=== PATIENT | female | born 1980 | race African-American/Black ===

== ENCOUNTER 2023-12-27 19:40 | Outpatient (REF) | payer SELFPAY | END 2023-12-27 19:41 | disposition home or self-care (01) | LOC: HO.LNP 19:40 | PROVIDERS: Visit Provider Internal Medicine | DX: N30.00 Acute cystitis without hematuria (principal); B96.20 Unspecified Escherichia coli [E. coli] as the cause of diseases classified elsewhere | CPT/HCPCS: 87086; 87088; 87186 ==

== ENCOUNTER 2024-01-09 10:57 | Outpatient (REF) | payer SELFPAY ==
[2024-01-09 14:33] LABS: Basophils Absolute Auto 0.1 X10*3/uL (0.0-0.2); Basophils Percent Auto 0.6 % (0-2); Eosinophils Absolute Auto 0.1 X10*3/uL (0.0-0.4); Eosinophils Percent Auto 1.7 % (0-4); Hematocrit 33.2 % (37.0-47.0); Hemoglobin 9.7 g/dl (12.0-16.0); Imm Gran Abs Auto 0.01 X10*3/uL (0.00-0.03); Imm Gran Pct Auto 0.1 % (0.0-0.4); Lymphocytes Absolute Auto 2.1 X10*3/uL (1.2-4.9); Lymphocytes Percent Auto 27.2 % (20-40); MANUAL DIFF FLAG SCAN; Mean Corpuscular HGB Conc 29.2 g/dl (31.0-35.0); Mean Corpuscular Hemoglobin 23.8 pg (27.0-33.0); Mean Corpuscular Volume 81.4 fL (80.0-98.0); Monocytes Absolute Auto 0.5 X10*3/uL (0.1-1.2); Monocytes Percent Auto 6.5 % (2-11); Neutrophils Percent Auto 63.9 % (45-73); PLT CLUMP 1; Red Blood Count 4.08 X10*6/uL (4.20-5.50); Red Cell Distribution Width 15.7 % (11.0-16.0); SCAN SMEAR FLAG 1
[2024-01-09 15:05] LABS: White Blood Count 7.9 X10*3/uL (4.8-10.8)
[2024-01-09 15:06] LABS: Platelet Count 215 X10*3/uL (160-400)
[2024-01-09 15:07] LABS: SLIDE REVIEW VERIFIED
[2024-01-09 15:44] LABS: Alanine Aminotransferase 15 U/L (0-31); Albumin Level 4.3 g/dL (3.5-5.0); Alkaline Phosphatase 67 U/L (39-117); Anion Gap 13 (12-20); Aspartate Amino Transferase 25 U/L (5-31); Bilirubin Total 0.8 mg/dL (0.0-1.0); Blood Urea Nitrogen 8 mg/dL (9-16); Carbon Dioxide 24 mmol/L (22-29); Chloride 106 mmol/L (96-108); Cholesterol 189 mg/dL (<200); Estimated Glomerular Filt Rate > 60; Glucose Random 92 mg/dL (60-115); HCG Quantitative < 2 mIU/mL; HDL Cholesterol 38 mg/dL (>40); LDL Cholesterol Calculated 128 mg/dL (<100); Potassium 3.8 mmol/L (3.3-5.1); Sodium 139 mmol/L (135-145); TSH reflex Free T4 2.66 uIU/mL (0.32-4.0); Total Protein 7.8 g/dL (6.5-8.0); Triglycerides 117 mg/dL (<150)
[2024-01-09 19:32] LABS: Reflex LDLD? No
[2024-01-10 05:39] LABS: HBS Num1 2.19 mIU/mL (0-7.99); HBc Num1 0.05 S/CO (0.00-0.79); HBsAGNum1 0.48 S/CO (0.00-0.99); Hepatitis A Antibody IgM 0.16 Index (0-0.79); Hepatitis B Core Antibody Nonreactive (Nonreactive); Hepatitis B Surface Antigen Negative (Negative); ~HepC Num1 0.13 S/CO (0.00-0.79); ~Hepatitis A Antibody IgM Nonreactive (Nonreactive); ~Hepatitis B Surface Antibody NONREACTIVE (Nonreactive); ~Hepatitis C Antibody Nonreactive (Nonreactive)
== END 2024-01-09 10:58 | disposition home or self-care (01) ==
LOC: HO.HHCL 10:57
PROVIDERS: Visit Provider Internal Medicine
DX: R10.2 Pelvic and perineal pain (principal); I10 Essential (primary) hypertension; N30.00 Acute cystitis without hematuria
CPT/HCPCS: 36415; 80053; 80061; 84443; 84702; 85025; 86704; 86706; 86709; 86803; 87340

== ENCOUNTER 2024-02-19 13:21 | Outpatient (REF) | payer MEDICAID, SELFPAY ==
[2024-02-19 16:21] LABS: Immature Retic Fraction 24.7 % (3.0-15.9); Retic HGB Equivalent 26.1 pg (30.0-35.0); Reticulocyte Percent 2.4 % (0.5-1.8); Reticulocytes Absolute 0.096 X10*6/uL (0.026-0.095)
[2024-02-19 18:32] LABS: Ferritin 7 ng/mL (10-250)
[2024-02-19 18:45] LABS: Folate 13.7 ng/mL (> or = 4.0); Vitamin B12 400 pg/mL (200-900)
[2024-02-19 19:04] LABS: HCG Quantitative 36811 mIU/mL
[2024-02-21 01:38] LABS: Follicle Stimulating Hormone <0.7 mIU/mL; Prolactin Undiluted 23.3 ng/mL
[2024-02-22 14:24] LABS: Hematocrit 31.8 % (35.0-45.0); Hemoglobin 9.5 g/dL (11.7-15.5); MCH 24.4 pg (27.0-33.0); MCV 81.7 fL (80.0-100.0); RBC 3.89 Million/uL (3.80-5.10); RDW 15.2 % (11.0-15.0)
== END 2024-02-19 13:22 | disposition home or self-care (01) ==
LOC: HO.HHCL 13:21
PROVIDERS: Visit Provider Internal Medicine
DX: D64.9 Anemia, unspecified (principal); N91.4 Secondary oligomenorrhea
CPT/HCPCS: 82607; 82728; 82746; 83001; 83020; 84146; 84702; 85014; 85018; 85041; 85045

== ENCOUNTER 2024-04-18 13:29 | Outpatient (REF) | payer MEDICAID, SELFPAY ==
--- OUTSIDE RECORDS SUMMARY | 2024-04-18 17:05 | XMS_ITS | Encounter Summary ---
Author Organization [employer] Address [address] [facility] [address] [place] [address] Care Team Providers Care Tugboat Captain Name Role Phone Ellie Frost MD Primary Care Provider + Reason for Visit * Reason Comments Care Coordination C3KO/TAVO Ramirez#2- SDOH Outreach-LVM Encounter Details Date Type Department Care Team (Latest Contact Info) Description 03/20/2024 Patient Outreach [facility] [address] [place] [address] Ellie Frost MD [address] [place] [address] Care Coordination (ARELY/TAVO Song#2- SDOH Outreach-LVM) Social History Tobacco Use Types Packs/Day Years Used Date Smoking Tobacco: Never Smokeless Tobacco: Never Alcohol Use Standard Drinks/Week Comments Never 0 (1 standard drink = 0.6 oz pur e alcohol) Housing Stability Answer Date Recorded What is your housing situation today? I do not have housing (Staying with others, in a hotel, in a long term, living outside on the street, on a beach, in a car, or in a park 02/16/[address] you li ve. Do you have problems with any of the following? I am not sure 02/16/2024 Food Insecurity Answer Date Recorded Within the past 12 months, y ou worried that your food would run out before you got money to buy more: Often true 02/16/2024 Within the past 12 months,th e food you bought just didn't last and you didn't have enough money to get more: Often true 11/2024 Transportation Answer Date Recorded In the past 12 months, has l ack of transportation kept you from medical appts, meetings, work or from getting things needed for daily living? I am not sure 02/16/2024 Utilities Answer Date Recorded In the past 12 months, has t he electric, gas, oil or water company threatened to shut off services in your home? I am not sure 02/16/2024 Depression Answer Date Recorded Patient Health Questionnaire-2 Score 0 02/16/2024 Internet Access Answer Date Recorded Internet Access Q1 I am not sure 02/16/2024 Internet Access Q2 Not on file 02/16/2024 Comments No Sex and Gender Information Value Date Recorded Sex Assigned at Female 09/18/2023 10:59 AM EDT Legal Sex Female 11:03 AM EDT Gender Identity Female 09/18/2023 10:59 AM EDT Sexual Orientation Straight 12/27/2023 5: 33 PM EST documented as of this encounter Progress Notes * Esther Nascimento - 03/20/2024 1:57 PM EST CHW Esther Nascimento placed outbound call to patient in regards to offer CHW program services using [employer]. VM was left calling from [facility] CM Department with CHW'sname, department and direct contact number requesting call back. Will re-attempt to contact within 5 days. and address not confirmed. documented in this encounter Plan of Treatment Upcoming Encounters Date Type Department Care Team (Late st Contact Info) Description 06/20/2024 9:00 AM EDT Office Visit [facility] [address] [place] [address] Ellie Frost MD [address] [place], [place] [phone] documented as of this encounter Visit Diagnoses Not on filedocumented in this encounter Care Teams Tugboat Captain Relationship Specialty Start Date End Date Ellie Frost MD [address] [place], [place] [phone] PCP - General Internal Medicine 01/10/24 documented as of this encounter
--- OUTSIDE RECORDS SUMMARY | 2024-04-18 17:05 | XMS_ITS | Encounter Summary ---
Author Organization [employer] Address [address] [facility] [address]t [place] [address] Care Team Providers Care Executive Pastry Chef Name Role Phone Ellie Frost MD Primary Care Provider + Reason for Visit * Reason Comments Care Coordination C3KO/TAVO Ramirez#2- SDOH assistance-LVM Encounter Details Date Type Department Care Team (Latest Contact Info) Description 04/10/2024 Patient Outreach [facility] [address] [place] [address] Ellie Frost MD [address] [place] [address] Care Coordination (ARELY/TAVO Song#2- SDOH assistance-LVM) Social History Tobacco Use Types Packs/Day Years [...] encounter Progress Notes * Esther Nascimento - 04/10/2024 1:03 PM EST CHW Esther Nascimento placed outbound call to patient in regards to offer CHW program services for assistance with transportation for upcoming appt on 04/18/2024 @12PM at [facility]. [facility] [place] Creole scrap hooker Yennifer FRIAS calling from [facility] CM Department with CHW's name, department and direct contact number requesting call back. Will re-attempt to contact within 5 days. and address not confirmed. documented in this encounter Plan of Treatment Upcoming Encounters Date Type Department Care Team (Late st Contact Info) Description 06/20/2024 9:00 AM EDT Office Visit [facility] [address] [place] [address] Ellie Frost MD [address] [place] [address] documented as of this encounter Visit Diagnoses Not on filedocumented in this encounter Care Teams Executive Pastry Chef Relationship Specialty Start Date End Date Ellie Frost MD [address] [place] [id number] PCP - General Internal Medicine 01/10/24 documented as of this encounter
--- OUTSIDE RECORDS SUMMARY | 2024-04-18 17:05 | XMS_ITS | Encounter Summary ---
Author Organization [employer] Address [address] [facility] [address] [place] [address] Care Team Providers Care Retail Pharmacy Manager Name Role Phone Ellie Frost MD Primary Care Provider + Reason for Visit * Reason Onset Date Comments Chart prep 04/15/2024 Encounter Details Date Type Department Care Team ([facility] st Contact Info) Description 04/15/2024 Telephone [facility] [address] [place] [address] Ellie Frost MD [address] [place] [address] Chart prep Social History Tobacco Use Types Packs/Day Years Used Date Smoking Tobacco: Never Smokeless Tobacco: Never Alcohol Use Standard Drinks/Week Comments Never 0 (1 standard drink = 0.6 oz pur e alcohol) Housing Stability Answer Date Recorded What is your housing situation today? I do not have housing (Staying with others, in a hotel, in a intermediate, living outside on the street, on a [...] PM EST documented as of this encounter Miscellaneous Notes * Telephone Encounter - Gabbie Castanon [place] - 04/15/2024 1:50 PM EDT Chart Prep Labs: not done Images: not done Vaccines due: yes Referrals: pending appt Screenings: mammogram , pap smear Overdue care gaps: N/A documented in this encounter Plan of Treatment Upcoming Encounters Date Type Department Care Team (Late st Contact Info) Description 06/20/2024 9:00 AM EDT Office Visit [facility] [address] [place] [address] Ellie Frost MD [address] [place] [address] documented as of this encounter Visit Diagnoses Not on filedocumented in this encounter Care Teams Retail Pharmacy Manager Relationship Specialty Start Date End Date Ellie Frost MD [address] [place] [address] PCP - General Internal Medicine 01/10/24 documented as of this encounter
--- OUTSIDE RECORDS SUMMARY | 2024-04-18 17:05 | XMS_ITS | Encounter Summary ---
Author Organization [employer] Address [address] [place] [address] 7t [place] [address] Care Team Providers Care Documentation Liaison Name Role Phone Ellie Frost MD Primary Care Provider + Reason for Referral * Consultation (Routine) - Pending Review Specialty Diagnoses / Procedures Referred By Denia maurer Referred To Contact Obstetrics and Gynecology Diagnoses , unspecified gestational age Ellie Frost MD [address] [place] [address] Phone: tel: fax: Referral ID Status Reason Start Date Expiration Date Visits Requested Visits Authorized [id number] Pending Review Specialty Services Required 04/18/2024 04/18/2025 1 1 Reason for Visit * Reason Comments Follow-up Encounter Details Date Type Department Care Team ([facility] Contact Info) Description 04/18/2024 12:00 PM EDT Office Visit [facility] [address] [place] [phone] Ellie Frost MD [address] [place] [phone] Primary hypertension (Primary Dx); Anemia, unspecified type; Amenorrhea; Glucosuria; , unspecified gestational age Social History Tobacco Use Types Packs/Day Years Used Date Smoking Tobacco: Never Smokeless Tobacco: Never Alcohol Use Standard Drinks/Week Comments Never 0 (1 standard drink = 0.6 oz pur e alcohol) Housing Stability Answer Date Recorded What is your housing situation today? I do not have housing (Staying with others, in a hotel, in a senior care, living outside on the street, on a [...] PM EST documented as of this encounter Last Filed Vital Signs Vital Sign Reading Time Taken Comments Blood Pressure 174/94 04/18/2024 12:29 PM EDT Pulse 110 04/18/2024 12:29 PM EDT Temperature 35.1 ??C (95.2 ??F) 04/18/2024 12:29 PM E DT Respiratory Rate - - Oxygen Saturation 100% 04/18/2024 12:29 PM EDT Inhaled Oxygen Concentration - - Weight 93.1 kg (205 lb 4 oz) 04/18/2024 12:29 PM EDT Height 174 cm (5' 8.5 ) 04/18/2024 12:29 PM EDT Body Mass Index 30.75 04/18/2024 12:29 PM EDT documented in this encounter Miscellaneous Notes * Assessment & Plan Note - Syeda Salguero - 04/18/2024 1:32 PM EDTAssociated Problem(s): Refer to OB. * Assessment & Plan Note - Syeda Salguero - 04/18/2024 1:32 PM EDTAssociated Problem(s): Anemia Most likely exacerbated by , she is on iron supplementation/ vitamins. She'll be referred to OB for further evaluation of and they will do additional work up ifneeded. * Assessment & Plan Note - Syeda Salguero - 04/18/2024 1:31 PM EDTAssociated Problem(s): Glucosuria Incurrent UA, no evidence of UTI or DM. Order RBS and A1c and fu with me in 4-5 weeks. * Assessment & Plan Note - Syeda Salguero - 04/18/2024 1:30 PM EDTAssociated Problem(s): Amenorrhea Secondary to , pt agreed to be referred to OB. We discussed the importance of taking vitamins, and tight control of HTN. Pt will come to WIC if she develops dysuria, vaginal bleeding or discharge, pelvic pain, severe BASHIR,chest pain, or SOB. Order HCG, she must be xxxx weeks . * Assessment & Plan Note - Syeda Salguero - 04/18/2024 1:29 PM EDTAssociated Problem(s): Primary hypertension Uncontrolled, I will increase Labetalol to 300 mg and fu in 4-5 weeks. Counseled re low salt diet/increase moderate physical activity. Check home BP BIW and prn CP/BASHIR/BEDOYA. Non smoking patient. documented in this encounter Plan of Treatment Upcoming Encounters Date Type Department Care Team (Late st Contact Info) Description 06/20/2024 9:00 AM EDT Office Visit [facility] [address] [place] [address] Ellie Frost MD [address] [place] [address] Scheduled Orders Name Type Priority Associated Diagnoses Orde r Schedule hCG, Total, Quantitative Lab Routine , unspecified gestational age Expected: 04/18/2024 (Approximate), Expires: 04/18/2025 Hemoglobin A1c Lab Routine Primary hypertension Glucosuria Expected: 04/18/2024 (Approximate), Expires: 04/18/2025 Glucose, Random, Serum Lab Routine Primary hypertension Glucosuria Expected: 04/18/2024 (Approximate), Expires: 04/18/2025 Scheduled Referrals Name Type Priority Associated Diagnoses Orde r Schedule Referral to Obstetrics / Gynecology Outpatient Referral Routine , unspecified gestational age Expected: 04/18/2024 (Approximate), Expires: 04/18/2025 documented as of this encounter Procedures Procedure Name Priority Date/Time Associated Diagnosis Comments POCT , URINE Routine 04/18/2024 1:02 PM EDT Amenorrhea POCT URINALYSIS DIPSTICK Routine 04/18/2024 1:02 PM EDT Amenorrhea documented in this encounter Results * (ABNORMAL) POCT Urine (04/18/2024 1:02 PM EDT) Preg Test, Ur Positive (A) Negative, Indeterminate, None Detected, Invalid, Specimen unsatisfactory for evaluation, Weakly Positive QC Media Lot # [id number] Lot# Expiration Date 113,025 Urine 04/18/2024 1:02 PM EDT Ellie Frost MD POINT OF CARE TEST ENTER /EDIT ORDERABLES Final Result * POCT Urinalysis (04/18/2024 1:02 PM EDT) Color, UA Yellow Clarity, UA Clear Glucose, UA Trace Comment:100mg Bilirubin, UA Negative Ketones, UA Negative Spec Grav, UA 1.025 Blood, UA Negative Negative, None Detected pH, UA 5.5 Protein, UA Trace Urobilinogen, UA 0.2 Leukocytes, UA Negative Negative, Rare, Trace Nitrite, UA Negative Negative, None Detected Appearance, UA clear QC Media Lot # [id number] Lot# Expiration Date [id number] Urine 04/18/2024 1:02 PM EDT Ellie Frost MD POINT OF CARE TEST ENTER /EDIT ORDERABLES Final Result documented in this encounter Visit Diagnoses Diagnosis Primary hypertension- Primary Unspecified essential hypertension Anemia, unspecified type Amenorrhea Absence of menstruation Glucosuria Glycosuria , unspecified gestational age documented in this encounter Care Teams Documentation Liaison Relationship Specialty Start Date End Date Ellie Frost MD [address] [place] [phone] PCP - General Internal Medicine 01/10/24 documented as of this encounter
--- OUTSIDE RECORDS SUMMARY | 2024-04-18 17:05 | XMS_ITS | Encounter Summary ---
Author Organization [employer] Address [address] [facility] [address] [place] [address] Care Team Providers Care Dictating Machine Mechanic Name Role Phone Ellie Frost MD Primary Care Provider + Encounter Details Date Type Department Care Team (Latest Contact Info) Description 04/18/2024 Travel Social History Tobacco Use Types Packs/Day Years Used Date Smoking Tobacco: Never Smokeless Tobacco: Never Alcohol Use Standard Drinks/Week Comments Never 0 (1 standard drink = 0.6 oz pur e alcohol) Housing Stability Answer Date Recorded What is your housing situation today? I do not have housing (Staying with others, in a hotel, in a assisted, living outside on the street, on a [...] PM EST documented as of this encounter Plan of Treatment Upcoming Encounters Date Type Department Care Team (Late st Contact Info) Description 06/20/2024 9:00 AM EDT Office Visit [facility] [address] [place] [address] Ellie Frost MD [address] [place] [address] documented as of this encounter Visit Diagnoses Not on filedocumented in this encounter Care Teams Dictating Machine Mechanic Relationship Specialty Start Date End Date Ellie Frost MD [address] [place] [address] PCP - General Internal Medicine 01/10/24 documented as of this encounter
--- OUTSIDE RECORDS SUMMARY | 2024-04-18 17:05 | XMS_ITS | Clinical Summary ---
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 30 tablet 11 02/15/19 25 Active labetalol (Normodyne) 300 MG tablet Take 1 tablet (300 mg) by mouth 2 times daily. 180 tablet 1 04/19/19 25 026 Active labetalol (Normodyne) 200 MG tablet Take 1 tablet (200 mg) by mouth 2 times daily. 60 tablet 3 02/15/19 25 025 Discontinued Active Problems Problem Noted Date Diagnosed Date Amenorrhea 04/18/2024 Assessment & Plan (04/18/2024 1:30 PM EDT): Secondary to , pt agreed to be referred to OB. We discussed the importance of taking vitamins, and tight control of HTN. Pt will come to WIC if she develops dysuria, vaginal bleeding or discharge, pelvic pain, severe BASHIR, chest pain, or SOB. Order HCG, she must be xxxx weeks . Glucosuria 04/18/2024 Assessment & Plan (04/18/2024 1:31 PM EDT): Incurrent UA, no evidence of UTI or DM. Order RBS and A1c and fu with me in 4-5 weeks. 04/18/2024 Assessment & Plan (04/18/2024 1:32 PM EDT): Refer to OB. Pure hypercholesterolemia 02/16/2024 Assessment & Plan (02/16/2024 11:36 AM EST): Recommended moderate amount of exercise and increase consumption of fruit, vegetables, fish and high fiber foods. Should decrease consumption of highly saturated fats or trans fats. Anemia 02/16/2024 Assessment & Plan (04/18/2024 1:32 PM EDT): Most likely exacerbated by , she is on iron supplementation/ vitamins. She'll be referred to OB for further evaluation of and they will do additional work up if needed. Assessment & Plan (02/19/2024 5:03 PM EST): Unclear if related to GI vs chronic paracytic infection endemic in tropical areas (she came from [place] less than 1y ago) vs other, will order labs and will consider treatment intestinal parasites at next appointment if everything is negative. Exercise counseling 02/16/2024 Secondary oligomenorrhea 02/16/2024 Assessment & Plan (02/16/2024 11:36 AM EST): Could be related to perimenopause, will r/o , order labs. Follow up at next appointment. Overweight 02/16/2024 Assessment & Plan (02/16/2024 11:37 AM EST): Discussed re weight reduction options including exercise, life style modifications, diet. Recommended to decrease soda and sugary beverage consumption, increase protein intake with meals (at least 1 portion of protein with each meal) to assist with satiety, increase dietary fiber Recommended at least 150 min/week of moderate intensity exercise. Primary hypertension 12/27/2023 Assessment & Plan (04/18/2024 1:29 PM EDT): Uncontrolled, I will increase Labetalol to 300 mg and fu in 4-5 weeks. Counseled re low salt diet/increase moderate physical activity. Check home BP BIW and prn CP/BASHIR/BEDOYA. Non smoking patient. Assessment & Plan (02/16/2024 11:37 AM EST): Uncontrolled. Compliant w/meds Pt will DC Losartan as pt would like to get , begin Labetalol 200 mg BID. Counseled re low salt diet/increase moderate physical activity. Check home BP BIW and prn CP/BASHIR/BEDOYA Non smoking patient. Follow up with me in 3-4 weeks. Pt declined influenza vaccination today. Assessment & Plan (12/27/2023 7:23 PM EST): Start rx losartan/hydrochlorothiazide. Counseled re low salt diet/increase moderate physical activity. Check home BP BIW and prn CP/BASHIR/BEDOYA Non smoking patient. 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 Pelvic pain 12/27/2023 Assessment & Plan (12/27/2023 8:19 PM EST): She has UTI, is ro'd Treat UTI and get labs, takey tylenol prn Order pelvic US Cough in adult 12/27/2023 Assessment & Plan (12/27/2023 7:26 PM EST): No sxs URI, advised to take herbal teas, water and cough lozenges prn Can take tylenol prn for sore throat or fever, chills. Acute cystitis without hematuria 12/27/2023 Assessment & Plan (12/27/2023 8:19 PM EST): Rx Macrobid x 7d Increase water intake Encounters Date Type Department Care Team Description 04/18/2024 12:00 PM EDT Office Visit [facility] [address] [place] [phone] Ellie Frost MD Primary hypertension (Primary Dx); Anemia, unspecified type; Amenorrhea; Glucosuria; , unspecified gestational age 0304/18/2024 Travel 04/15/2024 Telephone [facility] [address] [place] [phone] Ellie Frost MD Chart prep 04/10/2024 Patient Outreach [address] [phone] Ellie Frost MD Care Coordination ([facility] [place] Esther Nascimento TC[facility]- [facility] assistance-LVM) 03/20/2024 Patient Outreach [address] [phone] Ellie Frost MD Care Coordination ([facility] [place] TAVO [place]#2- [facility] Outreach-LVM) 02/28/2024 Patient Outreach [address] [phone] Ellie Frost MD Care Coordination ([facility] [place] Esther Nascimento TC[facility]1-[facility] outreach-LV) 02/20/[address] [phone] Ellie Frost MD telephone call 02/16/2024 10:00 AM EST Office Visit [address] [phone] Ellie Frost MD Primary hypertension (Primary Dx); Pure hypercholesterolemia; Anemia, unspecified type; Overweight; Secondary oligomenorrhea; Encounter for immunization; Screening mammogram for breast cancer; Exercise counseling; Dietary counseling 02/16/2024 Travel 02/15/[address] [phone] Ellie Frost MD Chart prep 02/08/2024 Patient Outreach [address] [phone] Ellie Frost MD from Last 3 Months Immunizations Name Administration Dates Next Due Influenza, seasonal, injectable, preservative fr ee 02/16/2024 Social History Tobacco Use Types Packs/Day Years Used Date Smoking Tobacco: Never Smokeless Tobacco: Never Tobacco Cessation:Counseling Given: Not Answered Alcohol Use Standard Drinks/Week Comments Never 0 (1 standard drink = 0.6 oz pur e alcohol) Housing Stability Answer Date Recorded What is your housing situation today? I do not have housing (Staying with others, in a hotel, in a mcc, living outside on the street, on a [...] Orientation Straight 12/27/2023 5: 33 PM EST Last Filed Vital Signs Vital Sign Reading Time Taken Comments Blood Pressure 174/94 04/18/2024 12:29 PM EDT Pulse 110 04/18/2024 12:29 PM EDT Temperature 35.1 ??C (95.2 ??F) 04/18/2024 12:29 PM E DT Respiratory Rate 16 02/16/2024 10:43 AM EST Oxygen Saturation 100% 04/18/2024 12:29 PM EDT Inhaled Oxygen Concentration - - Weight 93.1 kg (205 lb 4 oz) 04/18/2024 12:29 PM EDT Height 174 cm (5' 8.5 ) 04/18/2024 12:29 PM EDT Body Mass Index 30.75 04/18/2024 12:29 PM EDT Plan of Treatment Upcoming Encounters Date Type Department Care Team (Late st Contact Info) Description 06/20/2024 9:00 AM EDT Office Visit [facility] [address] [place], [place] [phone] Ellie Frost MD [address] [place], [place] [phone] Health Maintenance Due Date Last Done Comments HIV Screening 1980 DTaP/Tdap/Td Vaccines (1 - Tdap) 10/13/1998 Hepatitis B Vaccines (1 of 3 - 19+ 3-dose series) 10/13/1998 Pap Smear 10/13/2000 Cervical Cancer Screening 10/13/2009 HPV/Cotest 10/13/2009 Mammogram 2019 COVID-19 Vaccine (1 - 2023-2 5 season) 2023 Tobacco Screening 12/26/2024 12/27/2023 Alcohol/Substance Use Screening 02/15/2025 02/16/2024 Depression Screening 02/15/2025 02/16/2024, 02/16/2024 SDOH Screening 02/15/2025 02/16/2024 Family Planning (PISQ) 02/18/2025 02/19/2024 Lipid Panel 01/08/2029 01/09/2024 Zoster Vaccines (1 of 2) 10/13/2029 RSV Patients and Patients Aged 60 years or older (1 - 1-dose 75+ series) 10/13/2054 Hepatitis C Screening Completed 01/09/2024 Influenza Vaccine Completed 02/16/2024 HIB Vaccines Aged Out No longer eligi ble based on patient's age to complete this topic HPV Vaccines Aged Out No longer eligi ble based on patient's age to complete this topic Hepatitis A Vaccines Aged Out No long er eligible based on patient's age to complete this topic IPV Vaccines Aged Out No longer eligi ble based on patient's age to complete this topic Meningococcal Vaccine Aged Out No ana laura gia eligible based on patient's age to complete this topic Pneumococcal Vaccine: Pediatrics (0 to 5 Years) and At-Risk Patients (6 to 49) Years) Aged Out No longer eligible b ased on patient's age to complete this topic RSV under 20 months Aged Out No longe r eligible based on patient's age to complete this topic Rotavirus Vaccines Aged Out No longer eligible based on patient's age to complete this topic Procedures Procedure Name Priority Date/Time Associated Diagnosis Comments POCT , URINE Routine 04/18/2024 1:02 PM EDT Amenorrhea POCT URINALYSIS DIPSTICK Routine 04/18/2024 1:02 PM EDT Amenorrhea HEPATITIS PANEL, GENERAL Routine 01/09/2024 11:00 AM EST Pelvic pain LIPID PANEL WITH REFLEX TO DIRECT LDL Routine 01/09/2024 11:00 AM EST Primary hypertension from Last 3 Months or Most Recently Relevant to Health Maintenance Results * (ABNORMAL) POCT Urine (04/18/2024 1:02 [...] TEST ENTER /EDIT ORDERABLES Final Result * (ABNORMAL) Lipid Panel with Reflex to Direct LDL (01/09/2024 11:00 AM EST) Triglycerides 117 <150 mg/dL [facility] Comment:Desirable Triglyceri de: less than 150 mg/dLBorderline High Triglyceride 150-199 mg/dLHigh Triglyceride: 200-499 mg/dLVery High Triglyceride: greater than or equal to 5OO mg/dL Cholesterol 189 <200 mg/dL [facility] Comment:Desirable Cholestero l: less than 200 mg/dLBorderline High Cholesterol: 200-239 mg/dLHigh Cholesterol: greater than 239 mg/dL LDL Cholesterol Calculated 128(H) <100 mg/dL [facility] Comment:Desirable LDL: less than 100 mg/dLNear Optimal/Above Optimal LDL: 110- 129 mg/dLBorderline High LDL: 130-159 mg/dLHigh LDL: 160-189 mg/dLVery High LDL: greater than or equal to 190 mg/dL HDL Cholesterol 38(L) >40 mg/dL [facility] Comment:Desirable HDL: great er than 40 mg/dL Note: This HDL assay may give artificially low results in patients with liver disease. Blood 01/09/2024 11:0 0 AM EST 01/09/2024 2:31 PM EST us Ellie Frost MD LAB BLOOD ORDERABLES Fin al Result [facility] [address] [place] [phone] * Hepatitis Panel, General (01/09/2024 11:00 AM EST) Hepatitis A IgM Nonreactive Nonreactive [facility] Comment:IgM antibodies to BASHIR V not detected; does not exclude earlyacute or recovered HAV infection. ~Hepatitis B Surface Antibody NONREACTIVE Nonreactive [facility] Comment:Nonreactive: < 8.00 mIU/mL Hepatitis B Core Antibody Nonreactive Nonreactive [facility] Hepatitis C Antibody Nonreactive Nonreactive [facility] Comment:Antibodies to HCV no t detected; does not exclude early acuteHCV infection. Hepatitis B Surface Ag Negative Negative [facility] Blood 01/09/2024 11:0 0 AM EST 01/09/2024 2:31 PM EST Ellie Frost MD LAB BLOOD ORDERABLES Fin al Result [facility] [address] [place] [phone] from Last 3 Months or Most Recently Relevant to Health Maintenance Insurance [employer] Care Teams Camera Systems Engineer Relationship Specialty Start Date End Date Ellie Frost MD [address] [place] [phone] PCP - General Internal Medicine 01/10/24
[2024-04-22 14:53] LABS: Hematocrit 33.9 % (35.0-45.0); Hemoglobin 10.5 g/dL (11.7-15.5); MCH 25.7 pg (27.0-33.0); MCV 82.9 fL (80.0-100.0); RBC 4.09 Million/uL (3.80-5.10); RDW 18.5 % (11.0-15.0)
== END 2024-04-18 13:30 | disposition home or self-care (01) ==
LOC: HO.HHCL 13:29
PROVIDERS: Visit Provider Internal Medicine
DX: D64.9 Anemia, unspecified (principal)
CPT/HCPCS: 36415; 83020; 85014; 85018; 85041